=== PATIENT | male | born 1995 | race African-American/Black ===

== ENCOUNTER 2018-12-04 13:19 | Emergency (ER) | payer SELFPAY ==
[~2018-12-04] VITALS: Ht 190.5 cm; Wt 90.7 kg
[2018-12-04] MEDS ORDERED: ONDANSETRON HCL/PF 4 MG/2 ML VIAL ONE ×2 (14:20→15:28)
[2018-12-04] MEDS ORDERED: MORPHINE SULFATE INJ 4 MG/ML DISP.SYRIN ONE (14:20)
[2018-12-04] MEDS: IV NS 0.9% 1,000 ML BAG IV ONE (14:34)
[2018-12-04] MEDS: ONDANSETRON HCL/PF 4 MG/2 ML VIAL IVP ONE (14:35)
[2018-12-04] MEDS ORDERED: LORAZEPAM INJ 2 MG/ML VIAL ONE (14:36)
[2018-12-04] MEDS: MORPHINE SULFATE INJ 2 MG/ML DISP.SYRIN IV ONE (14:37)
[2018-12-04] MEDS: LORAZEPAM INJ 2 MG/ML VIAL IV ONE (14:42)
--- NOTE | 2018-12-04 14:45 | NUR ---
c/o epigastric pain w/ nausea since this am. PT AAOX4, VSS. DENIES CP, SOB, DIZZINESS AT THIS TIME. PT SEEN & EVAL'D BY BRYAN LINDSAY. MEDICATED PER FOR PAIN & N/V, PT ELIZABETH WELL.
[2018-12-04 14:47] LABS: BASOPHILS % (AUTO) 0.1 % (0.0-2.0); HEMATOCRIT 45 % (39-51); HEMOGLOBIN 14.6 g/dL (13.5-17.5); LYMPHOCYTES # (AUTO) 0.7 /CMM (0.8-4.8); LYMPHOCYTES % (AUTO) 4.5 % (20.0-44.0); MEAN CORPUSCULAR HGB CONC 33 g/dl (31.0-36.0); MEAN CORPUSCULAR VOLUME 88 fL (80-96); MONOCYTES # (AUTO) 0.4 /CMM (0.1-1.30); MONOCYTES % (AUTO) 2.8 % (2.0-12.0); NEUTROPHILS # (AUTO) 14.1 /CMM (1.8-8.9); NEUTROPHILS % (AUTO) 92.6 % (43.0-81.0); PLATELET COUNT (AUTO) 228 /CMM (150-450); RED BLOOD CELL COUNT(AUTO) 5.11 MIL/uL (4.5-6.0); WHITE BLOOD COUNT (AUTO) 15.2 K/uL (4.3-11.0)
[2018-12-04 14:55] LABS: CALCIUM, SERUM 8.9 mg/dL (8.5-10.1); CREATININE 0.9 mg/dL (0.6-1.3); POTASSIUM 3.9 mmol/L (3.5-5.1)
[2018-12-04 15:02] LABS: ALBUMIN 4.3 g/dL (3.4-5.0); BILIRUBIN,DIRECT 0.1 mg/dL (0.0-0.2); BILIRUBIN,TOTAL 1.5 mg/dL (0.2-1.0); TOTAL PROTEIN, SERUM 7.8 g/dL (6.4-8.2)
[2018-12-04] MEDS ORDERED: HYDROMORPHONE 1 MG/1 ML DISP.SYRIN ONE (15:29)
[2018-12-04] MEDS: ONDANSETRON HCL/PF 4 MG/2 ML VIAL IV ONE (15:30)
[2018-12-04] MEDS ORDERED: METOCLOPRAMIDE HCL 10 MG/2 ML VIAL IV ONE (15:30)
[2018-12-04] MEDS: HYDROMORPHONE INJ 0.5 MG/0.5 ML SYRINGE IV ONE ×2 (15:34→16:59)
--- NOTE | 2018-12-04 15:35 | NUR ---
MEDICATED FOR PAIN & NAUSEA ORDERED, PT ELIZABETH WELL.
--- NOTE | 2018-12-04 18:21 | NUR ---
Patient discharged to home in stable condition. Written and verbal after care instructions given. Patient verbalizes understanding of instruction. IV removed. Catheter intact and site benign. Pressure and 4x4 applied to site. No bleeding noted.
[2018-12-04 18:22] VITALS: BP 143/75
== END 2018-12-04 18:23 | disposition home or self-care (01) ==
LOC: ER 13:23
DX: R10.13 Epigastric pain (principal); R11.2 Nausea with vomiting, unspecified; F12.90 Cannabis use, unspecified, uncomplicated; Z76.5 Malingerer [conscious simulation]; Z86.19 Personal history of other infectious and parasitic diseases; Z90.49 Acquired absence of other specified parts of digestive tract
CPT/HCPCS: 36415; 74176; 80048; 80076; 83690; 85025; 96361; 96374; 96375; 96376; 99284; J1170; J2060; J2270; J2405 ×2; J7030